=== PATIENT | female | born 1950 | race Caucasian/White ===

== ENCOUNTER → 2016-07-10 | Outpatient (CLI) | payer MEDICARE, OTHER ==
[~2016-07-10] MED LIST: ACETAMINOPHEN PO; ASPIRIN PO; AUGMENTIN PO; EFFEXOR XR PO; EVISTA60 MG PO; FISH OIL 1,0001 CAP PO; FLAGYL PO; IBUPROFEN PO; LIPITOR PO; LOTREL PO; MEDROL PO; PATIENT'S PHARMACY; TRICOR PO; TRILIPIX PO; TRILIPIX135 MG PO
--- NOTE | ~2016-07-10 | CT138 ---
[facility] A Service of [facility] RADIOLOGY TEXT RESULTS PATIENT: DORI TSE LOCATION: [facility] : 48 UNIT #: [id number] AGE: [address]: Jero Solis MD SEX: F ORDER DR: [id number] [place], [place] [address] [id number] O MR#: [id number] Acc #: [id number] NAME: DORI TSE : 1950 SEX: F STUDY DATE/TIME: 07/10/2016 8:48 UNIT: [facility] ROOM: STUDY DESCRIPTION: CT Lung screening initial Attending Physician: Jero Solis M.D. Ordering Physician: Jero Solis M.D. MEDICAL IMAGING REPORT This report is preliminary unless electronic signature is present EXAM CT lung cancer screening. INDICATIONS Lung cancer screening. 30 pack year smoking history. PROCEDURE Noncontrast low-dose CT of the chest performed per lung cancer screening protocol. CTDI 2.95 mGy. Total DLP 17 mGy-cm. COMPARISON 03/05/[address] exam was performed with one or more of the following radiation dose reduction techniques: automatic exposure control, adjustment of mA and/or kV according to patient size, and iterative reconstruction. FINDINGS There is linear scarring or atelectasis in the right middle lobe. No suspicious pulmonary nodule. Coronary artery calcification. No adenopathy. No acute findings in the included upper abdomen. No aggressive appearing bone lesion. IMPRESSION 1. No suspicious pulmonary nodule. 2. Coronary artery calcification. 3. Lung RADS category 1 negative. Per the ACL lung recommendations suggest patient continue with annual low-dose lung cancer screening Dictated by... Paco Duenas M.D. [facility] A Service of [facility] RADIOLOGY TEXT RESULTS PATIENT: DORI TSE LOCATION: [facility] : 48 UNIT #: [id number] AGE: [address]: Jero Solis MD SEX: F ORDER DR: THIS IS AN ELECTRONICALLY VERIFIED REPORT Paco Duenas M.D. at 07/24/2016 7:02 AM [facility]/brianda TD: 07/10/2016 10:57 JOB #: [id number] MEDICAL IMAGING REPORT COPY
== END | disposition home or self-care (01) ==
LOC: CCAT 08:34
DX: F17.210 Nicotine dependence, cigarettes, uncomplicated (principal)
CPT/HCPCS: G0297

== ENCOUNTER → 2016-12-24 | Outpatient (CLI) | payer MEDICARE, OTHER ==
--- NOTE | ~2016-12-24 | MY29 ---
[facility] A Service of [facility] RADIOLOGY TEXT RESULTS PATIENT: VERÓNICA TSE LOCATION: [facility] : 48 UNIT #: [id number] AGE: [address]: Jero Solis MD SEX: F ORDER DR: [id number] [facility] [address] [place], [place] [address] [id number] O MR#: [id number] Acc #: [id number] NAME: VERÓNICA TSE : 1950 SEX: F STUDY DATE/TIME: 12/24/2016 10:57 UNIT: [facility] ROOM: STUDY DESCRIPTION: [facility] SCREENING W/ CAD BILAT Attending Physician: Jero Solis M.D. Referring Physician: Jero Solis M.D. Ordering Physician: Jero Solis M.D. Primary Care Physician: Jero Solis M.D. MEDICAL IMAGING REPORT This report is preliminary unless electronic signature is present EXAM Bilateral digital screening mammogram with CAD DATE: 12/24/2016 HISTORY No personal or family history of breast cancer or current complaints. COMPARISON Bilateral screening mammogram 01/02/2016. FINDINGS CC and MLO views were obtained of each breast utilizing digital technique and reviewed with an FDA-approved CAD device. Scattered fibroglandular densities are present bilaterally. No new or suspicious nodule, architectural distortion or clustered microcalcification is seen. No abnormal skin thickening or nipple retraction is identified. IMPRESSION 1. BIRADS 1. Negative screening mammogram. Routine screening mammogram is recommended in one year. Patients over the age of 40 are entered into a reminder system with target due date for the next mammogram. A result letter will also be sent to the patient. BIRADS: 1 - negative [facility] A Service of [facility] RADIOLOGY TEXT RESULTS PATIENT: VERÓNICA TSE LOCATION: [facility] : 48 UNIT #: [id number] AGE: [address]: Jero Solis MD SEX: F ORDER DR: Dictated by... Oneyda Berry M.D. THIS IS AN ELECTRONICALLY VERIFIED REPORT Oneyda Berry M.D. at 12/25/2016 8:56 AM [facility]/brianda TD: 12/24/2016 14:31 JOB #: [id number] MEDICAL IMAGING REPORT Page 1 of 1 COPY
== END | disposition home or self-care (01) ==
LOC: CWCC 10:30
DX: Z12.31 Encounter for screening mammogram for malignant neoplasm of breast (principal)
CPT/HCPCS: G0202